=== PATIENT | male | born 1945 | race Caucasian/White ===

== ENCOUNTER 2025-03-20 09:47 | Outpatient (CLI) | payer OTHER ==
--- NOTE | 2025-03-20 19:02 | CARDIOLOGY REPORT ---
APPROVED REPORT EXAM: Comprehensive 2D, Doppler, and color-flow Echocardiogram. Patient Location: OUT-PATIENT Blood Pressure: 174/44 mmHg Heart Rate: 52 bpm Rhythm: Sinus Bradycardia Indications [employer] out of town (Dr. Syed MD) No previous echo 2D Dimensions LA Diam4.5 cm IVSd 1.0 (0.7-1.1cm) LVDd 5.4 cm PWd 1.0 (0.7-1.1cm) IVSs 1.3 (0.8-1.2cm) LVDs 3.6 (2.5-4.0cm) Aortic Root(2D) 3.5 cm PWs 1.4 (0.8-1.2cm) LVOT Diameter 2.30 (1.8-2.4cm) LVEF(%) 62.1 (>50%) IVC 19.30 mmFS (%) 33.8 % SV 89.1 ml M-Mode Dimensions MV EPSS 0.8 (<0.5cm) Aortic Valve AoV Peak Rashaun. 131.7 cm/s AoV VTI 30.9 cm AO Peak GR. 6.9 mmHg AO Mean GR. 4 mmHg LVOT VTI 23.83 cm LVOT Peak Rashaun. 95.8 cm/s KEON (VMAX) 3.03 cm2 KEON (VTI) 3.21 cm2 Mitral Valve MV E Velocity 81.9 cm/s MV DECEL TIME 197 ms MV A Velocity 38.4 cm/s MV PHT 56 ms E/A Ratio 2.1 MVA (PHT) 3.92 cm2 TDI E/Medial E' 10.0 Tricuspid Valve TR P. Velocity 267 cm/s RAP ESTIMATE 10 mmHg TR Peak Gr. 28 mmHg RVSP 38 mmHg Pulmonary Vein S2 Velocity 65.23 cm/s PVa [id number] msec LEFT VENTRICLE Normal LV size and wall thickness. Overall systolic function is normal. LVEF is 60%. RIGHT VENTRICLE RV appears mildly dilated with normal contractility. RVSP is estimated at 38 mmHG. ATRIA Left atrium is mildly dilated. AORTIC VALVE Trileaflet AV appears sclerotic without stenosis. Trace insufficiency. MITRAL VALVE MV is thickened with no annular calcification or stenosis. Trace mitral regurgitation. TRICUSPID VALVE The tricuspid valve is normal in structure. Trace tricuspid regurgitation. PULMONIC VALVE The pulmonary valve is normal in structure. Trace pulmonic regurgitation. GREAT VESSELS The aortic root is normal in size. Ascending aorta measured at 3.7 cm. The IVC is normal in size and collapses >50% with inspiration. PERICARDIUM There is no pericardial effusion. Other Information Study Quality: Adequate Conclusion Normal LV size and wall thickness. Overall systolic function is normal. LVEF is 60%. RV appears mildly dilated with normal contractility. RVSP is estimated at 38 mmHG. Left atrium is mildly dilated. Trileaflet AV appears sclerotic without stenosis. Trace insufficiency. MV is thickened with no annular calcification or stenosis. Trace mitral regurgitation. The tricuspid valve is normal in structure. Trace tricuspid regurgitation. The pulmonary valve is normal in structure. Trace pulmonic regurgitation. Ascending aorta measured at 3.7 cm. There is no pericardial effusion.
== END 2025-03-20 23:59 | disposition home or self-care (01) ==
LOC: RAD 09:47
PROVIDERS: ATTEND Chiropractor
DX: I34.0 Nonrheumatic mitral (valve) insufficiency (principal); I25.10 Atherosclerotic heart disease of native coronary artery without angina pectoris
CPT/HCPCS: 93306